=== PATIENT | male | born 1960 | race Caucasian/White ===

== ENCOUNTER 2016-10-18 22:45 | Emergency (ER) | payer BC ==
[~2016-10-18] VITALS: Ht 182.9 cm; Wt 113.3 kg
[2016-10-18] MEDS ORDERED: AMOXIL500 MG PO (23:08)
[2016-10-18] MEDS ORDERED: AMLODIPINE BESY10 MG PO (23:08)
[2016-10-18] MEDS ORDERED: LIPITOR80 MG PO (23:09)
[2016-10-18] MEDS ORDERED: ASPIRIN81 MG PO (23:09)
[2016-10-18] MEDS ORDERED: BISOPROLOL FUMA10 MG PO (23:10)
[2016-10-18] MEDS ORDERED: BENAZEPRIL HCL20 MG PO (23:10)
[2016-10-18] MEDS ORDERED: CHLORTHALIDONE25 MG PO (23:11)
[2016-10-18] MEDS ORDERED: FISH OIL1 GM PO (23:12)
[2016-10-18] MEDS ORDERED: LEVITRA20 MG PO (23:13)
[2016-10-18] MEDS ORDERED: GLUCOPHAGE500 MG PO (23:14)
[2016-10-18] MEDS ORDERED: TRULICITY1.5 MG/0.5 SUBCUT (23:17)
== END 2016-10-19 00:18 | disposition short-term general hospital (02) ==
LOC: ER 22:45
DX: R07.89 Other chest pain (principal); I10 Essential (primary) hypertension; E11.9 Type 2 diabetes mellitus without complications; Z79.82 Long term (current) use of aspirin; Z79.899 Other long term (current) drug therapy; Z79.84 Long term (current) use of oral hypoglycemic drugs; Z90.49 Acquired absence of other specified parts of digestive tract; Z87.891 Personal history of nicotine dependence
CPT/HCPCS: J1885